=== PATIENT | male | born 1970 | race Caucasian/White ===

== ENCOUNTER 2019-01-27 11:02 | Emergency (ER) | payer OTHER ==
[2019-01-27] MEDS: IBUPROFEN 600 MG TAB PO (12:32)
[2019-01-27] MEDS: HYDROCODONE/APAP (5/325) TAB PO (12:32)
== END 2019-01-27 14:20 | disposition home or self-care (01) ==
LOC: FTE 11:02
DX: S49.91XA Unspecified injury of right shoulder and upper arm, initial encounter (principal); R07.9 Chest pain, unspecified; W01.198A Fall on same level from slipping, tripping and stumbling with subsequent striking against other object, initial encounter; Y92.9 Unspecified place or not applicable
CPT/HCPCS: 71045; 73060-RT; 73090-RT; 93005; 99284-25